=== PATIENT | male | born 1950 | race Caucasian/White ===

== ENCOUNTER 2017-04-30 14:21 | Emergency (ER) | payer OTHER ==
[~2017-04-30] VITALS: Ht 180.3 cm; Wt 106.8 kg
[2017-04-30 14:22] VITALS: BP 155/82; PULSE 62; RESP 16; O2SAT 97
--- NOTE | 2017-04-30 15:10 | ED.REPORT ---
HPI-Trauma Minor / Fall Date of Service Apr 30, 2017 ED Provider: Dr. Paniagua 67 y/o male with a hx of DM presents to the ED complaining of a headache post a 6ft fall, onset just prior to arrival. The pt climbed on to the bed in his sliding camper when the whole thing came down and he landed on his head. Associated sx include nausea, dizziness and sore shoulders. He denies LOC, back pain, neck pain on palpation and abdominal pain. He is not on any blood thinners. Nursing Notes Stated Complaint: FELL 6 FT, HEAD INJURY, DIZZY, NAUSEA Chief Complaint: Multiple Trauma/Fall Nursing Notes Reviewed: Yes Allergies: Coded Allergies: hydrocodone (Verified Adverse Reaction, Severe, headaches, 04/30/17) Scheduled PRN Ondansetron ODT (Zofran ODT) 4 Mg Tablet 4 MG PO Q4H PRN PRN For Nausea General Time Seen by MD: 15:10 Chief Complaint Fall Hx Obtained From: Patient Arrived By: Walk-in Onset Occurred: Just prior to arrival Symptom Duration: Since onset Caused by: Fall from height... (6-10 feet) Location: Head Quality: Painful Severity: Current: Moderate Severity: Maximum: Severe Context: Immunizations Tetanus up to date Recent Healthcare: No recent doctor visit Similar Sx Previous: No Past Medical History Past Medical History PTSD Reports: Diabetes mellitus Past Surgical History none reported Smoking History Unknown if Ever Smoker Social History Other Social History: Good social support Ambulatory Status Independent Review of Systems Musculoskeletal: Reports: Joint pain (both shoulders sore), Denies: Back pain, Neck pain Neurologic: Reports: Headache Complete sys rev & neg: except as marked. GI: Reports: Nausea, Denies: Abdominal pain Physical Exam Initial Vital Signs Vital Signs (First) Date Time Temp Pulse Resp B/P Pulse Ox O2 Delivery O2 Flow Rate FiO2 04/30/17 14:22 36.6 62 16 155/82 97 Room Air Initial VS: Reviewed Extremities: Vascular intact, Neuro intact, No swelling, No tenderness Skin: Warm, Dry, No cyanosis Neurologic: Alert, Oriented, Nonfocal General/Constitutional: Awake, Alert, No acute distress, Cooperative Neck: Atraumatic, Full range of motion (after removing C-collar) C-collar in placce initially. Head / Eyes: PERRL Abrasion to midline occiput. Superficial abrasion to left supraorbital. Respiratory / Chest: Atraumatic, Breath sounds NL, Breath sounds = bilat, No respiratory distress, No rales, No rhonchi, No wheezing Cardiovascular: Regular rhythm, Heart sounds NL, No gallop, No murmurs, No rubs Heart Rate / Rhythm: Positive: Tachycardia (mildly) Left side fo the abdomen has subcutaneous port for lap band Back: Atraumatic, Full range of motion Interpretation & Diagnostics CT Head Interpretation IMPRESSION: No acute intracranial disease process. Dictated by: Jasmin Lopez MD, PhD on 04/30/2017 at 15:07 Approved by: Jasmin Lopez MD, PhD on 04/30/2017 at 15:10 Study: Head CT no contrast Interpretation / Wet Read by: Interpret - Radiologist CT C-Spine Interpretation IMPRESSION: No fracture. No acute osseous lesion. If symptoms and/or clinical suspicion for pathology persists, further assessment with MRI may be helpful for further assessment. Dictated by: Jasmin Lopez MD, PhD on 04/30/2017 at 15:10 Approved by: Jasmin Lopez MD, PhD on 04/30/2017 at 15:19 Study type: CT no contrast Interpretation / Wet Read by: Interpret - Radiologist Re-Eval/Medical Decision Med Decision/Clinical Course Isolated head injury, no identifiable injury to the rest of the body. Feeling better. Head and neck CTs are unremarkable. Return in follow-up precautions given. Re-Evaluation/Progress : Time of Eval: 15:27 Patient Status: Condition improved Re-Evaluation/Progress Note: Rechecked pt. Discussed lab, imaging results and diagnosis. Informed the pt of the plan to discharge. Pt understands and agrees with plan. F/U instructions and RTER warning given. All questions addressed. Counseled Regarding: Diagnosis, Need for follow-up, When/why to return to ED Discharge & Departure Impression: Primary Impression: Head injury Disposition: Home Discharge Condition All VS Reviewed: Yes Condition: Stable Additional Instructions: Your imaging results were reassuring. There is no sign of a serious injury. Take Ibuprofen for pain and Zofran for nausea as prescribed. Follow up with your primary care provider if needed. Return to the emergency department in case of any new or worsening symptoms. Referrals: [facility] Res[facility] Scribe Attestation Portions of this note were transcribed by Kassie Waller. I, , personally performed the history, physical exam and medical decision-making;I reviewed and confirmed the accuracy of the information in the transcribed note. Signed by Chasity Molina. 04/30/17 16:11 copies to: [facility]; [facility] Res[facility] Curt Paniagua DO Apr 30, 2017 15:10 Kassie Waller Apr 30, 2017 15:17
--- NOTE | 2017-04-30 15:11 | DRSVH ---
PROCEDURE: CT BRAIN WITHOUT CONTRAST ([id number]) INDICATIONS: fall 6 ft TECHNIQUE: Noncontrast 4.5 mm thick angled axial sections acquired from the foramen magnum to the vertex, with c oronal reformats. COMPARISON: None. FINDINGS: Image quality: Excellent. CSF spaces: Basal cisterns are patent. No extra-axial fluid collections. The ventricles are symmet tc in size and shape. Brain: No intracranial bleeds or masses. There is cerebral volume loss for age, with resultant vent ricular and sulcal prominence. There are periventricular and deep white matter chronic small vessel ischemic changes. There is intracranial internal carotid artery atherosclerosis. Skull and face: Calvarium and visualized facial bones appear intact, without suspicious lesions. Sinuses: Visualized sinuses and mastoids are clear. IMPRESSION: No acute intracranial disease process. Dictated by: Jasmin Lopez MD, PhD on 04/30/2017 at 15:07 Approved by: Jasmin Lopez MD, PhD on 04/30/2017 at 15:10
--- NOTE | 2017-04-30 15:21 | DRSVH ---
PROCEDURE: CT CERVICAL SPINE WITHOUT CONTRAST ([id number]) INDICATIONS: fall 6 ft TECHNIQUE: Noncontrast 3 mm thick sections acquired from the skull base to the T4 level. Sagittal and coronal r eformats were then constructed. For radiation dose reduction, the following was used: automated exp osure control, adjustment of mA and/or kV according to patient size. COMPARISON: None. FINDINGS: Image quality: Excellent. Bones: No fractures or dislocations. Visualized superior ribs are intact. Spine degenerative disc d isease and facet arthropathy. Soft tissues: Prevertebral soft tissues are normal in thickness. No paravertebral hematomas. No ap ical pneumothoraces. IMPRESSION: No fracture. No acute osseous lesion. If symptoms and/or clinical suspicion for patholog y persists, further assessment with MRI may be helpful for further assessment. Dictated by: Jasmin Lopez MD, PhD on 04/30/2017 at 15:10 Approved by: Jasmin Lopez MD, PhD on 04/30/2017 at 15:19
[2017-04-30] MEDS ORDERED: ONDA4TAB9 PO (15:43)
[2017-04-30 16:04] VITALS: BP 145/74; PULSE 64; RESP 16; O2SAT 97
== END 2017-04-30 16:04 | disposition home or self-care (01) ==
LOC: SED 14:21
DX: S09.8XXA Other specified injuries of head, initial encounter (principal); W13.8XXA Fall from, out of or through other building or structure, initial encounter; Y93.89 Activity, other specified; Y92.098 Other place in other non-institutional residence as the place of occurrence of the external cause; Y99.8 Other external cause status; E11.9 Type 2 diabetes mellitus without complications; Z88.5 Allergy status to narcotic agent